=== PATIENT | male | born 1950 | race Caucasian/White ===

== ENCOUNTER 2019-04-19 11:06 | Inpatient (IN) ==
[2019-04-19 12:45] LABS: INR 1.09; PROTIME 14.2 Seconds (11.0-16.0)
[2019-04-19 12:46] LABS: PTT 33.3 Seconds (22.3-41.8)
[2019-04-19 12:59] LABS: BASO# 0.07 X1000 (0.0-0.2); BASO% 0.7 % (0.0-0.8); EOS# 0.17 X1000 (0.0-0.7); EOS% 1.8 % (0.0-10.0); HEMATOCRIT 41.7 % (42.0-52.0); HEMOGLOBIN 13.4 g/dL (14.0-18.0); IMM GRAN# 0.09 X1000 (0.0-0.04); IMM GRAN% 0.9 % (0.0-0.5); LYMPH# 1.95 X1000 (1.2-3.4); LYMPH% 20.2 % (20.5-51.1); MCH 29.5 PG (27-31); MCHC 32.1 g/dL (33-37); MCV 91.6 FL (81-99); MONO# 1.01 X1000 (0.11-0.59); MONO% 10.5 % (1.7-9.3); NEUT# 6.34 X1000 (1.4-6.5); NEUT% 65.9 % (42.2-75.2); PLT 468 X1000 (130-400); RBC 4.55 XMIL (4.7-6.1); RDW 13.8 % (11.5-14.5); WBC 9.63 X1000 (4.8-10.8)
--- NOTE | 2019-04-19 13:03 | Diag Imaging Result Doc PS360 ---
US NON VASC EXTREMITY LIMITED - 04/19/2019 INDICATION: HEMATOMA R LEG TECHNIQUE: Ultrasound anterior right leg soft tissues COMPARISON: X-rays from 04/13/2019 FINDINGS: There are couple of superficial subcutaneous fluid collections in the lower leg and ankle compatible with subcutaneous hematomas. The larger measures eight point 4 x 1.5 cm. The smaller measures 3.9 cm. IMPRESSION: Moderately large subcutaneous collections of the right lower leg compatible with cutaneous hematomas. Electronically signed by Kenn Feliz 04/19/2019 1:00 PM
[2019-04-19 13:32] LABS: AGAP 12; ALB/GLOB RATIO 1.1; ALBUMIN 3.9 g/dL (3.5-5.0); ALKALINE PHOSPHATASE 205 U/L (32-122); BUN 15 mg/dL (8-22); CALCIUM 9.5 mg/dL (8.8-10.2); CHLORIDE 99 mmol/L (98-107); COSMO 275; CREATININE 0.9 mg/dL (0.7-1.2); ESTIMATED GFR > 60; GLUCOSE 164 mg/dL (70-104); GOT 37 U/L (10-34); GPT 41 U/L (10-44); SODIUM 135 mmol/L (136-145); TCO2 24 mmol/L (25-35); TOTAL PROTEIN 7.5 g/dL (6.3-8.3)
[2019-04-19] MEDS ORDERED: ULTRAM PO ONE (14:13)
--- NOTE | 2019-04-19 14:16 | Diag Imaging Result Doc PS360 ---
EXAM: CT EXT LOWER RIGHT W/O CON INDICATION: INJURY TECHNIQUE: COMPARISON: None. FINDINGS: There is no evidence of fracture or significant intrinsic osseous lesion involving the tibia or fibula or other visualized bony structures. There are mild degenerative changes at the ankles. There are large dilated varicose veins at the medial aspect of the lower thigh and surrounding the lower leg. There is soft tissue edema around the lower leg especially anteriorly. It is unclear if this is related to prior trauma but it could be as a result of venous valvular insufficiency given the large dilated varicose veins. There is a small soft tissue calcification at the anterior aspect of the lower leg inferiorly that is probably a phlebolith. The soft tissues surrounding the left leg are unremarkable. IMPRESSION: 1.Soft tissue edema and large dilated varicose veins associated with the right lower leg. Please see above discussion. 2.No evidence of acute osseous abnormality. Electronically signed by Hung Joy 04/19/2019 2:14 PM
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
--- NOTE | 2019-04-19 17:21 | Diag Imaging Result Doc PS360 ---
EXAM: US GB < RUQ (LIMITED) INDICATION: ELEVATED TOTAL BILI COMPARISON: None. FINDINGS: The gallbladder appears normal with no stones, wall thickening, or pericholecystic fluid. The common bile duct is normal in diameter. Sonographic Frazier's sign was reported to be negative. Multiple solid masses are noted in the liver. They are heterogeneous in echotexture. The largest mass is largely hypoechoic measuring 5.6 x 7.4 x 4.1 cm. These lesions are suspicious for neoplasm. Portal venous flow is hepatopetal. The pancreatic tail is obscured. The pancreatic head is unremarkable. The aorta and IVC are grossly unremarkable. The right kidney is grossly unremarkable. IMPRESSION: Several solid hepatic masses as described that are suspicious for neoplasm. Electronically signed by Hung Joy 04/19/2019 5:19 PM
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
[2019-04-19] MEDS ORDERED: ZOFRAN IV PRN (20:54)
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
[2019-04-19 21:30] LABS: HEMOGLOBIN A1C 6.5 % (4.8-6.0)
[2019-04-19] MEDS: WELLBUTRIN SR PO SCH (22:45)
[2019-04-19] MEDS: NS 1,000 ML IV SCH (22:45)
[2019-04-19 23:24] LABS: URINE SOURCE CATH
[2019-04-19 23:32] LABS: BILIRUBIN URINE NEGATIVE (NEGATIVE); BLOOD URINE NEGATIVE (NEGATIVE); COLOR YELLOW; GLUCOSE URINE NEGATIVE (NEGATIVE); KETONE URINE NEGATIVE (NEGATIVE); LEUKOCYTES URINE NEGATIVE (NEGATIVE); NITRITE URINE NEGATIVE (NEGATIVE); PH URINE 6.5; PROTEIN URINE TRACE mg/dL (NEGATIVE); SP GRAVITY URINE 1.044; TURBIDITY URINE CLEAR (CLEAR); UROBILINOGEN URINE 3 mg/dL (NORMAL)
[2019-04-19 23:33] LABS: UR EPITHELIAL CELLS <10 /HPF (<10); URINE BACTERIA NEGATIVE /HPF; URINE RBC <10 /HPF (<10); URINE WBC <10 /HPF (<10)
[2019-04-20] MEDS: NORCO-5 PO PRN ×4 (05:42→21:35)
[2019-04-20 07:26] LABS: BASO# 0.05 X1000 (0.0-0.2); BASO% 0.5 % (0.0-0.8); EOS# 0.21 X1000 (0.0-0.7); EOS% 2.2 % (0.0-10.0); HEMATOCRIT 37.2 % (42.0-52.0); HEMOGLOBIN 11.9 g/dL (14.0-18.0); IMM GRAN# 0.07 X1000 (0.0-0.04); IMM GRAN% 0.7 % (0.0-0.5); LYMPH# 1.65 X1000 (1.2-3.4); LYMPH% 16.9 % (20.5-51.1); MCH 29.4 PG (27-31); MCV 91.9 FL (81-99); MONO# 1.24 X1000 (0.11-0.59); MONO% 12.7 % (1.7-9.3); MPV 9.8 FL (7.4-10.4); NEUT# 6.52 X1000 (1.4-6.5); PLT 408 X1000 (130-400); RBC 4.05 XMIL (4.7-6.1); RDW 13.7 % (11.5-14.5); WBC 9.74 X1000 (4.8-10.8)
[2019-04-20 07:32] LABS: INR 1.13; PROTIME 14.6 Seconds (11.0-16.0)
[2019-04-20 07:41] LABS: AGAP 12; ALB/GLOB RATIO 0.9; ALBUMIN 3.4 g/dL (3.5-5.0); ALKALINE PHOSPHATASE 186 U/L (32-122); BUN 14 mg/dL (8-22); CALCIUM 9.1 mg/dL (8.8-10.2); CHLORIDE 100 mmol/L (98-107); COSMO 274; CREATININE 0.8 mg/dL (0.7-1.2); ESTIMATED GFR > 60; GLUCOSE 126 mg/dL (70-104); GOT 30 U/L (10-34); GPT 34 U/L (10-44); POTASSIUM 4.2 mmol/L (3.5-5.1); SODIUM 136 mmol/L (136-145); TCO2 24 mmol/L (25-35); TOTAL BILIRUBIN 2.48 mg/dL (0.20-1.00)
--- NOTE | 2019-04-20 07:43 | Diag Imaging Result Doc PS360 ---
CT THORAX/ABD/PELVIS W/WO CON - 04/19/2019 INDICATION: likely liver mets, unknown primary COMPARISON: None FINDINGS: CHEST: There is no adenopathy. Heart and great vessels are normal. The lungs are clear. Bones are intact. Abdomen pelvis: There is a large lobulated indeterminate liver mass.r this measures 10.6 x 12.6 cm in AP and lateral dimensions. This is in the right lobe. This is heterogeneous, predominantly isodense on the noncontrast exam, with some early nodular enhancement peripherally and partial filling in on the venous phase. There is a benign, simple left renal cyst measuring 5.3 cm. No bowel obstruction or inflammation. Normal appendix. Urinary bladder, prostate, and rectum are normal. There are moderate degenerative changes of the spine. No acute or suspicious bony lesion. IMPRESSION: 1. Negative chest. 2. Indeterminate liver mass. The differential diagnosis is a benign hemangioma versus an unusual metastasis. Recommend further evaluation with a nuclear medicine tagged red blood cell scan. This exam was performed using automated exposure control, adjustment of mA or kV according to patient size, and/or use of iterative reconstruction technique Electronically signed by Kenn Feliz 04/20/2019 7:40 AM
[2019-04-20 08:02] LABS: EOS 2 % (1-10); LYMPHS 20 % (21-51); MONO 6 % (1-9); SEGS 72 % (42-75)
--- NOTE | 2019-04-20 10:12 | Diag Imaging Result Doc PS360 ---
CT GUIDED BX LIVER - 04/20/2019 INDICATION: solid liver masses TECHNIQUE: The risks and benefits of the procedure were discussed with the patient. All questions were answered. Written and verbal informed consent was obtained. Overlying skin was prepped and draped in sterile fashion. Anesthesia was achieved with injection of 10 cc of 1% lidocaine. COMPARISON: 04/19/2019 FINDINGS: The lateral aspect of the right lobe of the liver was biopsied. The 6/11 cm 19/20 gauge biopsy needle set was used. 14 needle biopsy specimens were obtained. The needles were withdrawn intact. The patient reported no symptoms from the procedure. IMPRESSION: Successful and uncomplicated CT-guided liver mass biopsy. Electronically signed by Kenn Feliz 04/20/2019 10:09 AM
[2019-04-20] MEDS: ASPIRIN PO SCH (10:19)
[2019-04-20] MEDS: NS 1,000 ML IV SCH (10:20)
[2019-04-20] MEDS: EFFIENT PO SCH (10:21)
[2019-04-20] MEDS: PROTONIX PO SCH (10:21)
[2019-04-20] MEDS: WELLBUTRIN SR PO SCH ×2 (10:21→21:35)
[2019-04-20 11:58] LABS: HEPATITIS PROFILE ACUTE SEE COMMENTS
[2019-04-20] MEDS: MORPHINE IV PRN ×2 (12:03→17:52)
[2019-04-20 13:04] LABS: HEMATOCRIT 38.1 % (42.0-52.0); HEMOGLOBIN 12.2 g/dL (14.0-18.0)
--- NOTE | 2019-04-20 13:55 | Diag Imaging Result Doc PS360 ---
MRI ABDOMEN W/WO CONTRAST - 04/20/2019 INDICATION: Liver mets TECHNIQUE: COMPARISON: CT from earlier 04/20/2019 FINDINGS: There is a large heterogeneous lobular mass in the right lobe of the liver. This measures about 11.4 x 12.8 cm in AP and lateral dimensions. This demonstrates internal septations. No surrounding biliary dilation. Intravenous contrast was administered. No delayed images were obtained. There is hyperenhancement on the early arterial phase. There is hypoenhancement on the delayed phase. IMPRESSION: Large suspicious liver mass. This is indeterminate. Image findings suggest hepatocellular carcinoma. Biopsy has already been performed. Electronically signed by Kenn Feliz 04/20/2019 1:53 PM
--- NOTE | 2019-04-20 15:52 | PROGRESS NOTE ---
DATE: 04/20/2019 INTERVAL HISTORY: The patient is status post CT-guided liver biopsy this morning. Had reportedly some mild bleeding afterwards as the needle was withdrawn. Some moderate right upper quadrant pain after the procedure, but no nausea, vomiting, dizziness, palpitations, edema, bruising. REVIEW OF SYSTEMS: Twelve point review of systems negative, except as per interval history. LABS: WBC 9.7, hemoglobin 12.2, hematocrit 38.1, platelets 408. INR 1.13. Sodium 136, potassium 4.2, bicarbonate 24, BUN 14, creatinine 0.8, glucose 126. Hemoglobin A1c 6.5. Bilirubin 2.48, AST 30, ALT 34, alkaline phosphatase 186. Hepatitis panel negative. CEA 1.4. IMAGING: CT chest, abdomen and pelvis with contrast: Negative chest. Indeterminate liver mass. Abdominal MRI showing large suspicious liver mass approximately 11 x 13 cm internal septations. No surrounding biliary dilatations. Favor hepatocellular carcinoma. VITALS: T-max 99.9 degrees, pulse 85, respirations 20, blood pressure 114/81, O2 saturation 97% on room air. PHYSICAL EXAMINATION: General: No acute distress. Vitals: As above. HEENT: Normocephalic, atraumatic. Moist mucous membranes. Neck: No cervical adenopathy. No obvious jaundice. Cardiovascular: Regular rate and rhythm. No murmurs noted. Pulmonary: Clear to auscultation bilaterally. No wheezing, rales, or rhonchi. Abdomen: Soft, nontender, minimally distended. No flank bruising noted. Biopsy site clean, dry, intact. Bowel sounds positive. Extremities: Peripheral pulses intact. No clubbing or cyanosis. Right lower anterior extremity hematoma proximally stable. Neurologic: Cranial nerves grossly intact. No focal deficits identified. Psychiatric: Normal mood and affect. Awake, alert, oriented x3. Skin: Large right leg hematoma as above. Right flank biopsy site without drainage, erythema or other issue. ASSESSMENT AND PLAN: 1. Likely liver cancer. Initial ultrasound read as numerous solid liver lesions, but on repeat imaging more consistent with a large lobulated mass with internal septations. Initial suspicion was for metastatic malignancy, but with further imaging more consistent with primary hepatocellular carcinoma. No history of hepatitis or intravenous drug use or heavy alcohol use. Biopsy obtained this morning results pending. Hepatitis panel negative. Hematology recommendations pending. The patient with some reported bleeding as the needle was withdrawn. Some right upper quadrant pain afterwards. Repeat hemoglobin/hematocrit this afternoon is stable. We will monitor patient. If he has further discomfort or other sign of complication, then we will obtain additional imaging, but will monitor for now given clinical stability, stable blood counts, and unremarkable exam. 2. Right lower extremity injury with large hematoma. Pulses remain good. Continue to monitor. 3. Coronary artery disease with recent stents. Continue aspirin and Effient for now. May have to hold if signs of any significant bleeding develop. 4. Gastroesophageal reflux disease and Mace's esophagus. Continue proton pump inhibitor. 5. Urine retention. The patient did report some hesitancy initially. Bladder scan showed 500 mL. Garcia was placed. We will start him on Flomax and attempt to voiding trial in the morning. 6. Mild hyperglycemia. No known history of diabetes. A1c 6.5, indicating borderline/diet- controlled diabetes. We will discuss further with the patient, but no need for further intervention right now. [facility]ITAL[facility]
[2019-04-20] MEDS: FLOMAX PO SCH (17:49)
[2019-04-21] MEDS: NS 1,000 ML IV SCH (00:30)
[2019-04-21] MEDS: MORPHINE IV PRN (05:14)
[2019-04-21 07:11] LABS: BASO# 0.04 X1000 (0.0-0.2); BASO% 0.4 % (0.0-0.8); EOS# 0.26 X1000 (0.0-0.7); EOS% 2.9 % (0.0-10.0); HEMOGLOBIN 11.7 g/dL (14.0-18.0); IMM GRAN# 0.07 X1000 (0.0-0.04); IMM GRAN% 0.8 % (0.0-0.5); LYMPH# 1.56 X1000 (1.2-3.4); LYMPH% 17.3 % (20.5-51.1); MCH 29.4 PG (27-31); MCHC 31.6 g/dL (33-37); MONO% 11.1 % (1.7-9.3); MPV 9.7 FL (7.4-10.4); NEUT# 6.08 X1000 (1.4-6.5); NEUT% 67.5 % (42.2-75.2); PLT 413 X1000 (130-400); RBC 3.98 XMIL (4.7-6.1); RDW 13.8 % (11.5-14.5); WBC 9.01 X1000 (4.8-10.8)
[2019-04-21 07:31] LABS: AGAP 11; ALB/GLOB RATIO 0.9; ALBUMIN 3.2 g/dL (3.5-5.0); ALKALINE PHOSPHATASE 175 U/L (32-122); BUN 15 mg/dL (8-22); CALCIUM 8.9 mg/dL (8.8-10.2); CHLORIDE 100 mmol/L (98-107); COSMO 274; ESTIMATED GFR > 60; GLUCOSE 145 mg/dL (70-104); GOT 27 U/L (10-34); GPT 27 U/L (10-44); POTASSIUM 4.6 mmol/L (3.5-5.1); SODIUM 135 mmol/L (136-145); TCO2 24 mmol/L (25-35); TOTAL BILIRUBIN 1.62 mg/dL (0.20-1.00); TOTAL PROTEIN 6.7 g/dL (6.3-8.3)
[2019-04-21] MEDS: ASPIRIN PO SCH (09:05)
[2019-04-21] MEDS: FLOMAX PO SCH (09:05)
[2019-04-21] MEDS: WELLBUTRIN SR PO SCH (09:05)
[2019-04-21] MEDS: PROTONIX PO SCH (09:05)
[2019-04-21] MEDS: EFFIENT PO SCH (09:05)
[2019-04-21] MEDS: NORCO-5 PO PRN (13:01)
--- NOTE | 2019-04-21 14:11 | Diag Imaging Result Doc PS360 ---
BONE SCAN, TOTAL BODY - 04/20/2019 INDICATION: liver mets TECHNIQUE: 27.3 mCi of MDP was administered COMPARISON: None FINDINGS: There is normal localization of the radiotracer. Normal skeletal and soft tissue uptake. IMPRESSION: Negative exam. Electronically signed by Kenn Feliz 04/21/2019 2:09 PM
[2019-04-21 15:03] VITALS: BP 114/69
--- NOTE | 2019-04-22 16:11 | Extremity Venous Study ---
PROCEDURE NAME: Venous U/S Right Leg - 04/19/2019 REFERRING PHYSICIAN: Marcell Pena in the ED. INTERPRETING PHYSICIAN: Ambrocio Warren MD. LAMINATING MACHINE TENDER: Terra. INDICATION: The patient has a hematoma of the right lower extremity. The right lower extremity was imaged. The common femoral, superficial femoral, deep femoral, posterior tibial, peroneal are identified. The left common femoral vein was imaged for comparison purposes. All veins are compressible. No intraluminal clot is seen. INTERPRETATION: No evidence of deep or superficial venous thrombosis in the right lower extremity in the veins identified. cc: Ambrocio Warren MD
--- NOTE | 2019-04-22 19:46 | DISCHARGE SUMMARY ---
ADMISSION DATE: 04/19/2019 DISCHARGE DATE: 04/21/2019 CONSULTS: Oncology, Dr. Durham. PERTINENT STUDIES: Abdominal ultrasound showing several solid hepatic masses suspicious for neoplasm. CT chest abdomen and pelvis with single large liver mass with the differential being benign hemangioma or neoplasm. Follow-up abdominal MRI showing large suspicious liver mass, which was heterogenous, lobular and with internal septations, which was favored to represent hepatocellular carcinoma. Total body bone scan with normal uptake. No obvious metastasis identified. PROCEDURES: 1. CT-guided liver biopsy with results pending. 2. Lower extremity ultrasound with large subcu collection compatible with hematoma. 3. Lower extremity CT with soft-tissue edema and large dilated varicose veins in the right lower leg consistent with trauma. 4. Initial bilirubin 2.8, discharge bilirubin 1.6, AST 37, ALT 41, alkaline phosphatase 205, CEA 1.4, AFP 137. Urinalysis unremarkable. Hepatitis panel negative. Fasting glucose 145. Hemoglobin A1c 6.5. DISCHARGE DIAGNOSES: 1. Likely liver cancer. 2. Hyperbilirubinemia. 3. Diet-controlled diabetes. 4. Hyponatremia. 5. Right leg trauma with a large hematoma. 6. Coronary artery disease. 7. Benign prostatic hypertrophy. HOSPITAL COURSE: The patient presented initially for evaluation of right lower leg swelling and pain which occurred after a golf cart fell on him. He was initially seen in clinic. There was some concern for compartment syndrome, but on further evaluation, he did not appear to have compartment syndrome. He did have a large hematoma and extensive bruising, but no further intervention was needed there. During evaluation in the ED, incidental note was made of elevated bilirubin and subsequent ultrasound was concerning for hepatic masses which were initially favored to be metastatic lesions. Subsequent imaging showed 1 large lobular septated mass rather than multiple masses. An MRI eventually was obtained which favored primary hepatocellular carcinoma. CT-guided biopsy was obtained with results pending at the time of discharge. CEA was within normal limits, but AFP was markedly elevated at 137. Oncology was involved and recommended bone scan. This was obtained with no evidence of metastasis. Similarly, CT chest, abdomen, pelvis with contrast did not show any metastasis outside the liver. The patient was also instantly noted to have a mildly elevated blood sugar and A1c suggested diet-controlled diabetes. Symptomatically, patient was doing well and initial studies were obtained. The patient was discharged to follow up with Oncology early next week once results have returned for further planning and evaluation. Just after admission, patient did have some urinary retention. Bladder scan showed 500 mL. Garcia was placed. Patient was placed on Flomax. Further discussions revealed the patient had been on Flomax previously for BPH, but had stopped it himself. The patient was put back on Flomax with resolution of his symptoms and was urinating spontaneously on discharge. DISCHARGE VITAL SIGNS: Temperature 98.7 degrees, pulse 96, respirations 18, blood pressure 114/69, O2 saturation 97% on room air. DISCHARGE DIET: Regular. DISCHARGE MEDICATIONS: 1. Bupropion 150 mg p.o. b.i.d., Effient 10 mg p.o. daily, Protonix 40 mg p.o. daily, Zofran 4 mg p.o. q 4-6 hours p.r.n. 2. Flomax 0.4 mg p.o. daily, [place] 10/325 mg t.i.d. back. FOLLOW-UP AND PLAN: The patient discharging home. Patient to follow up with Oncology early next week to follow up on pathology results and make further plans. Patient to follow up with PCP. Greater than 30 minutes spent counseling patient and arranging discharge.
== END 2019-04-21 18:29 | disposition home or self-care (01) | DRG 436 ==
LOC: ED 11:06 → 3N 20:51
PROVIDERS: ATTEND Internal Medicine